=== PATIENT | male | born 2000 | race Caucasian/White ===

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

== ENCOUNTER 2018-05-10 11:32 | Emergency (ER) | END 2018-05-10 12:27 | disposition home or self-care (01) ==

== ENCOUNTER 2018-05-12 06:33 | Emergency (ER) | END 2018-05-12 07:28 | disposition home or self-care (01) ==

== ENCOUNTER 2018-05-17 10:38 | Emergency (ER) | END 2018-05-17 11:41 | disposition home or self-care (01) ==

== ENCOUNTER 2018-05-24 07:13 | Emergency (ER) | END 2018-05-24 08:32 | disposition home or self-care (01) ==

== ENCOUNTER 2018-08-22 10:35 | Emergency (ER) | payer OTHER ==
[~2018-08-22] VITALS: Ht 167.6 cm; Wt 107.5 kg
[~2018-08-22 10:35] MED LIST: BACITUD TOP; CIPR7.5D BOTH EARS
[2018-08-22 10:40] VITALS: BP 117/58; PULSE 65; RESP 17; Ht 167.6 cm; Wt 107.5 kg
[2018-08-22] MEDS ORDERED: AMOX500C2 PO (14:05)
[2018-08-22] MEDS ORDERED: OFLO5DRO7 LEFT EAR (14:05)
[2018-08-22] MEDS ORDERED: IBUP-1542 PO (14:06)
--- NOTE | 2018-08-22 15:09 | ERD ---
ER Documentation Chief Complaint Chief Complaint LEFT EAR PAIN X 4 DAYS. HPI 18-year-old male patient with no significant past medical history presents to ED complaining of left ear pain that started 4 days ago. Patient reports that he was using a Q-tip to clean his left ear, noticed that there was some purulent di scharge. Denies any acute pain or rupture to his eardrum. Denies any chest pain, shortness of breath, nausea, vomiting, diarrhea, neck stiffness. Patient reports that his pain is an achy type of pain and rates it a 5 out of 10. Denies hearing loss or bleeding ears. ROS All systems reviewed and are negative except as per history of present illness. Medications Home Meds Active Scripts Ibuprofen* (Motrin*) 600 Mg Tab, 600 MG PO Q6, #30 TAB Prov:RUPINDER ISBELL PA-C 08/22/18 Ofloxacin Otic (Ofloxacin Otic) 5 Ml Drops, 10 DROP LEFT EAR DAILY for 7 Days, #1 BOTTLE Prov:RUPINDER ISBELL PA-C 08/22/18 Amoxicillin* (Amoxicillin*) 500 Mg Cap, 500 MG PO TID for 10 Days, CAP Prov:RUPINDER ISBELL PA-C 08/22/18 Bacitracin* (Bacitracin Oint (UD)*) 1 Applic Oint, 1 APPLIC TOP ONCE, #10 PKT APPLY TO Prov:RUPINDER ISBELL PA-C 05/24/18 Ciprofloxacin Hcl/Dexameth (Ciprodex Otic Suspension) 7.5 Ml Drops.susp, 4 DROP BOTH EARS BID for 7 Days, EA Prov:LEI NEWTON PA-C 01/21/17 Allergies Allergies: Coded Allergies: No Known Allergy (Unverified , 08/22/18) PMhx/Soc Medical and Surgical Hx: pt denies Medical Hx, pt denies Surgical Hx History of Surgery: No Anesthesia Reaction: No Hx Neurological Disorder: No Hx Respiratory Disorders: No Hx Cardiac Disorders: No Hx Psychiatric Problems: No Hx Miscellaneous Medical Probl: No Hx Alcohol Use: No Hx Substance Use: No Hx Tobacco Use: No Smoking Status: Never smoker FmHx Family History: No diabetes, No coronary disease Physical Exam Vitals Vital Signs Date Temp Pulse Resp B/P (MAP) Pulse Ox O2 O2 Flow FiO2 Time Delivery Rate 08/22/18 98.9 14:14 3/2/19 98.5 65 17 117/58 97 10:40 (77) Physical Exam Const: [id number], well-nourished. In no acute distress. Head: Atraumatic, normocephalic Eyes: Normal Conjunctiva without injection. No purulent discharge. PERRL. EOMI ENT: Normal external ear. Ear canal without erythema. Right tympanic membrane pearly kowalski without effusion or bulging. No tenderness palpation of the bilateral mastoid. Tenderness palpation of the left tragus. Nasal canal clear with normal turbinates. Moist oropharynx without tonsillar exudates. Non- erythematous pharynx. Uvula midline. No drooling. No trismus. Neck: Full range of motion. No meningismus. No cervical lymphadenopathy. Resp: Clear to auscultation bilaterally. No wheezing, rhonchi, rales, or crackles. No accessory muscle use. No retractions. Cardio: Regular rate and rhythm. No murmurs, rubs or gallops. Abd: Soft, non tender, non distended. Normal bowel sounds. No palpable masses. No rebound tenderness. No guarding. Skin: No petechiae or rashes Back: No midline tenderness. No CVA tenderness. Ext: No cyanosis, or edema. Neur: Awake and alert. Psych: Normal Mood and Affect Procedures/MDM 18-year-old male patient with no significant past medical history presents to ED complaining of left ear pain that started 4 days ago. Patient is afebrile and nontoxic-appearing. Patient's physical exam is consistent with otitis media and externa. Patient does not have tenderness to palpation of mastoid. Low suspicion for mastoiditis. Patient's physical exam include lungs which were clear to auscultation and a normal pulse oximetry. Patient is speaking in full sentences. There is a low suspicion for tympanic membrane rupture, pneumonia, epiglottitis, croup, viral/strep pharyngitis, sinusitis, peritonsillar abscess, retropharyngeal abscess, meningitis, sepsis, acute abdomen or other emergent conditions. Diagnosis: Left ear pain Discharge medications: Ibuprofen, ofloxacin, amoxicillin Follow up with primary care physician in 1-2 days. Instructed patient to return to the ED sooner for any worsening symptoms. Patient's questions were answered. Patient is hemodynamically stable. Patient understood and agreed with discharge plan. Patient discharged stable. Disclaimer: Inadvertent spelling and grammatical errors are likely due to EHR /dictation software use and do not reflect on the overall quality of patient care. Also, please note that the electronic time recorded on this note does not necessarily reflect the actual time of the patient encounter. Departure Diagnosis: Primary Impression: Left ear pain Condition: Stable Patient Instructions: Otitis Media, Abx Tx (Adult), External Ear Infection (Adult) Referrals: [facility] YOU HAVE RECEIVED A MEDICAL SCREENING EXAM AND THE RESULTS INDICATE THAT YOU DO NOT HAVE A CONDITION THAT REQUIRES URGENT TREATMENT IN THE EMERGENCY DEPARTMENT. FURTHER EVALUATION AND TREATMENT OF YOUR CONDITION CAN WAIT UNTIL YOU ARE SEEN IN YOUR DOCTORS OFFICE WITHIN THE NEXT 1-2 DAYS. IT IS YOUR RESPONSIBILITY TO MAKE AN APPOINTMENT FOR FOLOW-UP CARE. IF YOU HAVE A PRIMARY DOCTOR --you should call your primary doctor and schedule an appointment IF YOU DO NOT HAVE A PRIMARY DOCTOR YOU CAN CALL OUR PHYSICIAN REFERRAL HOTLINE AT IF YOU CAN NOT AFFORD TO SEE A PHYSICIAN YOU CAN CHOSE FROM THE FOLLOWING [facility] [address] [facility]. [facility] [address] [facility] [facility] [address] [facility] [address] [facility]. [facility] [address] [facility]. [facility]. [address] [facility]. [facility] YOU HAVE RECEIVED A MEDICAL SCREENING EXAM AND THE RESULTS INDICATE THAT YOU DO NOT HAVE A CONDITION THAT REQUIRES URGENT TREATMENT IN THE EMERGENCY DEPARTMENT. FURTHER EVALUATION AND TREATMENT OF YOUR CONDITION CAN WAIT UNTIL YOU ARE SEEN IN YOUR DOCTORS OFFICE WITHIN THE NEXT 1-2 DAYS. IT IS YOUR RESPONSIBILITY TO MAKE AN APPOINTMENT FOR FOLOW-UP CARE. IF YOU HAVE A PRIMARY DOCTOR --you should call your primary doctor and schedule and appointment IF YOU DO NOT HAVE A PRIMARY DOCTOR YOU CAN CALL OUR PHYSICIAN REFERRAL HOTLINE AT . IF YOU CAN NOT AFFORD TO SEE A PHYSICIAN YOU CAN CHOSE FROM THE FOLLOWING [facility] INSTITUTIONS: [facility] [address] [place] [address] [facility] [address] [place] [address] [facility] [address] [place] [address] [facility] URGENT CARE/SPECIALTIES Additional Instructions: Call your primary care doctor TOMORROW for an appointment during the next 2-3 days.See the doctor sooner or return here if your condition worsens before your appointment time. RUPINDER ISBELL PA-C Aug 22, 2018 15:09
== END 2018-08-22 14:13 | disposition home or self-care (01) ==
LOC: FTE 10:35
DX: H92.02 Otalgia, left ear (principal)
CPT/HCPCS: 99283